=== PATIENT | female | born 1960 | race Caucasian/White ===

== ENCOUNTER → 2018-09-07 | Outpatient (CLI) | payer OTHER ==
[~2018-09-07] MED LIST: SYNTHROID0.075 MG/T PO
== END ==
LOC: COL.LAB 19:08
DX: H92.11 Otorrhea, right ear (principal)

== ENCOUNTER → 2020-09-27 | Outpatient (CLI) | payer OTHER | LOC: ZCOL.LAB 09:11 | DX: H92.11 Otorrhea, right ear (principal) ==